=== PATIENT | male | born 1985 | race Caucasian/White ===

== ENCOUNTER 2018-01-01 17:17 | Emergency (ER) | payer BC ==
[2018-01-01 17:43] VITALS: BP 128/84
--- NOTE | 2018-01-01 17:46 | UC ---
Ear Complaint HPI - HPI Summary HPI Summary: 32 yo male presents with feeling that his ears are "clogged". They pop a lot and he thinks he may have wax build up. This started about 3-4 weeks ago. Denies fever, chills, sinus congestion, sore throat, headache, or dizziness. - History of Current Complaint Chief Complaint: UCEar Stated Complaint: CLOGGED EARS Time Seen by Provider: 01/01/18 17:45 Hx Obtained From: Patient Severity Initially: Mild Severity Currently: Mild Pain Intensity: 4 Pain Scale Used: 0-10 Numeric - Allergies/Home Medications Allergies/Adverse Reactions: Allergies Allergy/AdvReac Type Severity Reaction Status Date / Time No Known Allergies Allergy Verified 01/01/18 17:43 PMH/Surg Hx/FS Hx/Imm Hx GI/ History: Gastroesophageal Reflux - Surgical History Surgical History: None - Family History Known Family History: Positive: None - Social History Occupation: Employed Full-time Lives: With Family Alcohol Use: Occasionally Substance Use Type: None Smoking Status (MU): Unknown if Ever Smoked Type: Smokeless Tobacco Review of Systems Constitutional: Negative Skin: Negative Eyes: Negative ENT: Ear Ache Respiratory: Negative Cardiovascular: Negative Gastrointestinal: Negative Neurological: Negative Psychological: Negative All Other Systems Reviewed And Are Negative: Yes Physical Exam - Summary Physical Exam Summary: GENERAL: NAD. WDWN. No pain distress. SKIN: No rashes, sores, lesions, or open wounds. HEENT: Head: AT/NC Eyes: EOM intact. Conjunctiva clear without inflammation or discharge. Ears: Hearing grossly normal. TMs intact, no bulging, erythema, or edema. Nose: Nasal mucosa pink and moist. NTTP maxillary and frontal sinus. Throat: Posterior oropharynx without exudates, erythema, or tonsillar enlargement. Uvula midline. NECK: Supple. Nontender. No lymphadenopathy. CHEST: CTAB. No r/r/w. No accessory muscle use. Breathing comfortably and in no distress. CV: RRR. Without m/r/g. Pulses intact. Brisk cap refill. NEURO: Alert. CN II-XII grossly intact. PSYCH: Age appropriate behavior. Triage Information Reviewed: Yes Vital Signs: Initial Vital Signs Temp 98.1 F 01/01/18 17:41 Pulse 64 01/01/18 17:41 Resp 18 01/01/18 17:41 BP 128/84 01/01/18 17:41 Pulse Ox 99 01/01/18 17:41 Ear Complaint Course/Dx - Course Course Of Treatment: Suspect eustachian tube dysfunction. Advised to take claritin and nasonex. - Differential Dx/Diagnosis Provider Diagnoses: Eustachian tube dysfunction. Allergies Discharge - Sign-Out/Discharge Documenting (check all that apply): Discharge/Admit/Transfer - Discharge Plan Condition: Stable Disposition: HOME Prescriptions: Loratadine [Claritin] 10 mg PO DAILY #30 tablet Mometasone Furoate [Nasonex] 17 gm NS DAILY #1 spray.pump Referrals: No Primary Care Phys,NOPCP [Primary Care Provider] - Additional Instructions: If you develop a fever, shortness of breath, chest pain, new or worsening symptoms - please call your PCP or go to the ED. - Billing Disposition and Condition Condition: STABLE Disposition: Home
== END 2018-01-01 18:05 | disposition home or self-care (01) ==
LOC: UCEAST 17:17
DX: H69.93 Unspecified Eustachian tube disorder, bilateral (principal); J31.0 Chronic rhinitis; K21.9 Gastro-esophageal reflux disease without esophagitis
CPT/HCPCS: 99212; G0463